=== PATIENT | female | born 1995 | race Caucasian/White ===

== ENCOUNTER 2020-04-25 09:02 | Outpatient (CLI) | payer OTHER ==
[2020-04-25 09:16] VITALS: BP 106/65; PULSE 88; RESP 16; TEMP 98.5
--- NOTE | 2020-05-04 19:15 | P.MSEPDOC ---
Presenting Problems - Arrival Data Date of Arrival on Unit: 04/25/20 Time of Arrival on Unit: 09:13 Mode of Transport: Ambulatory - Complaint OB-Reason for Admission/Chief Complaint: Rule Out SROM Comment: clear 6 am Medical History - Information : 1 Para: 0 Term: 0 : 0 Abortions: Spontaneous or Elective: 0 Number of Living Children: 0 - Gestational Age Gestational Age by GUERRERO (wks/days): 34 Weeks and 3 Days Review of Systems - Review of Systems Constitutional: No problems Breast: No problems ENT: No problems Cardiovascular: No problems Respiratory: No problems Gastrointestinal: No problems Genitourinary: No problems Musculoskeletal: No problems Neurological: No problems Skin: No problems Vital Signs - Temperature Temperature: 98.5 F Temperature Source: Oral - Pulse Sitting Pulse Rate: 88 Pulse Assessment Method: Automatic Cuff - Respirations Respiratory Rate: 16 Oxygen Delivery Method: Room Air - Blood Pressure Right Arm Blood Pressure: 106/65 Blood Pressure Mean: 78 Blood Pressure Source: Automatic Cuff Medical Screen Scoring (Pre) - Cervical Exam Dilation: Exam Deferred - Uterine Contractions Frequency: N/A Duration: N/A Intensity: N/A - Maternal Vital Signs Maternal Temperature: N/A Maternal Blood Pressure: N/A Signs of Preeclampsia: N/A Maternal Respirations: N/A - Maternal Trauma Maternal Trauma: N/A - Assessment - Baby A Baseline FHR: 140 Heart Rate - NICHD Category: Category I (Normal) = 0 NST: Reactive Position: N/A Station: N/A - Total Score - Baby A Total Score - Baby A: 0 - Total Score - Baby B Total Score - Baby B: 0 - Total Score - Baby C Total Score - Baby C: 0 - Level of Risk - Baby A Level of Risk - Baby A: Low (0-5) - Level of Risk - Baby B Level of Risk - Baby B: Low (0-5) - Level of Risk - Baby C Level of Risk - Baby C: Low (0-5) Physician Notification (Pre) - Physician Notified Physician Notified Date: 04/25/20 Physician Notified Time: 09:15 New Order Received: Yes Medical Screen Scoring (Post) - Cervical Exam Dilation: Exam Deferred Effacement: Exam Deferred Membranes: Intact - Uterine Contractions Frequency: N/A Duration: N/A Intensity: N/A - Maternal Vital Signs Maternal Temperature: N/A Maternal Blood Pressure: N/A Signs of Preeclampsia: N/A Maternal Respirations: N/A - Pain Assessment Pain Scale Used: Numeric (1 - 10) Pain Intensity: 0 Pain Management Goal: 0 - Maternal Trauma Maternal Trauma: N/A - Assessment - Baby A Heart Rate: 130 Heart Rate - NICHD Category: Category I (Normal) = 0 NST: Reactive Position: N/A - Total Score Total Score - Baby A: 0 Total Score - Baby B: 0 Total Score - Baby C: 0 - Post Treatment Level of Risk Post Treatment Level of Risk - Baby A: Low (0-5) Post Treatment Level of Risk - Baby B: Low (0-5) Post Treatment Level of Risk - Baby C: Low (0-5) Disposition - Disposition OB Disposition: Discharge to home, Written follow up instructions reviewed Discharge Date: 04/25/20 Discharge Time: 09:56 I agree with the RN Medical Screening Exam: Yes Risk & Benefit of care provided described in d/c instruction: Yes Diagnosis: RELATED CONDITIONS, UNSPECIFIED, THIRD TRIMESTER
== END 2020-04-25 09:56 | disposition home or self-care (01) ==
LOC: FBPOP 09:02
PROVIDERS: ATTEND Obstetrics & Gynecology
DX: O26.93 Pregnancy related conditions, unspecified, third trimester (principal); Z3A.34 34 weeks gestation of pregnancy
CPT/HCPCS: 59025; 84112; G0463; 99213

== ENCOUNTER 2020-05-31 06:15 | Inpatient (IN) | payer OTHER ==
[2020-05-31] MEDS ORDERED: CARBOPROST TROMETHAMINE 250 MCG/ML 1 ML AMP IM PRN (06:46)
[2020-05-31] MEDS ORDERED: METHYLERGONOVINE 0.2 MG/ML 1 ML AMP IM PRN (06:46)
[2020-05-31] MEDS ORDERED: TERBUTALINE 1 MG/ML VIAL SQ PRN (06:46)
[2020-05-31] MEDS ORDERED: LIDOCAINE 0.5% (PF) 5 MG/ML (50 ML SDV) SQ PRN (06:46)
[2020-05-31] MEDS ORDERED: OXYTOCIN 10 UNIT/ML 1 ML VIAL IM PRN (06:46)
[2020-05-31] MEDS ORDERED: LACTATED RINGERS 1,000 ML IV SCH (07:00)
[2020-05-31] MEDS ORDERED: OXYTOCIN 30 UNITS/500 ML NS 30 UNIT in SALINE 1 500ML.BAG IV SCH (07:00)
[2020-05-31 08:23] LABS: Basophils # (A) 0.1 k/uL (0-0.2); Basophils % (A) 1 %; Eosinophils # (A) 0.1 k/uL (0-0.7); Eosinophils % (A) 1 %; HCT 36.8 % (34.0-46.0); HGB 12.1 gm/dL (11.4-16.0); Lymphocytes # (A) 1.4 k/uL (1.0-4.8); Lymphocytes % (A) 13 %; MCH 29.6 pg (25.0-35.0); MCHC 32.9 g/dL (31.0-37.0); MCV 89.9 fL (80.0-100.0); Mean Platelet Volume 8.1; Monocytes # (A) 0.4 k/uL (0-1.0); Monocytes % (A) 4 %; Neutrophils % (A) 81 %; Platelet Count 181 k/uL (150-450); RDW 14.1 % (11.5-15.5); WBC 11.1 k/uL (3.8-10.6)
[2020-05-31] MEDS ORDERED: BUTORPHANOL 1 MG/ML 1 ML VIAL IV PRN (08:27)
--- NOTE | 2020-05-31 08:33 | P.HPOB ---
History of Present Illness H&P Date: 05/31/20 Chief Complaint: 39-4/7 weeks, elective induction Is a 25-year-old 1 para 0 admitted at 39-4/7 weeks as established by last menstrual period and confirmed by 19 week ultrasound. She is admitted for elective induction of labor with all signs reassuring. Her has been essentially uncomplicated though she is known to be rubella nonimmune and declines vaccinations as a general rule. Group B strep status is negative. Obstetrical history: 1 para 0 with current statistics listed in history of present illness. EDC of 06/03/2020 was established by last menstrual period and confirmed by 19 week ultrasound. Laboratory workup demonstrates a blood type of O+ with a negative antibody screen. Rubella status is nonimmune. Remainder of the laboratory workup was within normal limits. One hour Glucola was elevated but was followed by a normal three-hour glucose tolerance test. Group B strep status is negative. Gynecologic history: Unremarkable with no history of any infections to include STDs. Review of Systems Review of systems is confined to history of present illness. Past Medical History Past Medical History: No Reported History History of Any Multi-Drug Resistant Organisms: None Reported Additional Past Surgical History / Comment(s): Nunda tooth extraction Past Anesthesia/Blood Transfusion Reactions: No Reported Reaction Past Psychological History: Anxiety, Depression Smoking Status: Never smoker Past Alcohol Use History: None Reported Past Drug Use History: None Reported - Past Family History Mother Additional Family Medical History / Comment(s): hemmorage Medications and Allergies Home Medications Medication Instructions Recorded Confirmed Type Pnv No.95/Ferrous Fum/Folic AC 1 tablet PO DAILY 05/31/20 05/31/20 History [ Multivitamin Tablet] Sertraline [Zoloft] 12.5 mg PO DAILY 05/31/20 05/31/20 History Allergies Allergy/AdvReac Type Severity Reaction Status Date / Time latex Allergy Rash/Hives Verified 05/31/20 06:44 Penicillins Allergy Rash/Hives Verified 05/31/20 06:44 Exam Vital Signs Temp Pulse Resp BP 05/31/20 06:55 97.6 F 94 16 129/86 Intake and Output 05/30/20 05/31/20 05/31/20 22:59 06:59 14:59 Other: Weight 69.4 kg In general, this is a well-developed, well-nourished white female in no acute distress. Her heart has a regular rhythm and rate without murmur. Her lungs are clear to auscultation bilaterally in all neumann. Her abdomen is gravid, nondistended, has normal active bowel sounds, is soft, nontender, and without any palpable masses aside from uterine fundus. Her extremities are without any cyanosis, clubbing, or edema and are nontender to palpation. Digital cervical examination demonstrates her cervix to be 1-1/2-2 cm dilated, 50% effaced, the vertex in presentation at -2 station. Artificial rupture of membranes is carried out demonstrating lightly meconium-stained fluid. Results Result Diagrams: 05/31/20 07:20 Abnormal Lab Results - Last 24 Hours (Table) 05/31/20 Range/Units 07:20 WBC 11.1 H (3.8-10.6) k/uL Neutrophils # 9.0 H (1.3-7.7) k/uL Assessment and Plan (1) Term Current Visit: Yes Status: Acute Code(s): Z34.90 - ENCNTR FOR SUPRVSN OF NORMAL , UNSP, UNSP TRIMESTER SNOMED Code(s): 39593579 Plan: The patient has been admitted for elective induction of labor. I have explained to her that elective inductions do have a slightly increased risk for potential delivery. She has understood this and agreed to proceed. As result, Pitocin augmentation has been started and artificial rupture of membranes carried out. She will have close maternal and surveillance and expectant management will be practiced. She is a good candidate for either IV or epidural analgesia, whichever she may choose.
[2020-05-31] MEDS ORDERED: ROPIVACAINE 100 MG, fentaNYL (PF) 200 MCG in SODIUM CHLORIDE 0.9% 76 ML EPIDURAL ONE (14:05)
[2020-05-31] MEDS ORDERED: BENZOCAINE/MENTHOL SPRAY 1 GM/SPRAY AEROSOL TOPICAL PRN (19:02)
[2020-05-31] MEDS ORDERED: ACETAMINOPHEN TAB 325 MG TAB PO PRN (19:02)
[2020-05-31] MEDS ORDERED: LANOLIN CREAM 5 GM TUBE TOPICAL PRN (19:02)
[2020-05-31] MEDS ORDERED: HYDROcodone/APAP 5-325MG 1 EACH TAB PO PRN (19:02)
[2020-05-31] MEDS ORDERED: HYDROCORTISONE 2.5% RECTAL CREAM 30 GM TUBE RECTAL PRN (19:02)
[2020-05-31] MEDS ORDERED: diphenhydrAMINE 50 MG/ML 1 ML VIAL IVP PRN ×2 (19:02)
[2020-05-31] MEDS ORDERED: diphenhydrAMINE 25 MG CAP PO PRN (19:02)
[2020-05-31] MEDS ORDERED: diphenhydrAMINE 50 MG CAP PO PRN (19:02)
[2020-05-31] MEDS ORDERED: HYDROcodone/APAP 7.5-325MG 1 EACH TAB PO PRN (19:02)
[2020-05-31] MEDS ORDERED: ZOLPIDEM 5 MG TAB PO PRN (19:02)
[2020-05-31] MEDS ORDERED: SIMETHICONE 80 MG CHEWABLE PO PRN (19:02)
--- NOTE | 2020-05-31 19:06 | P.PROBDLV ---
Vaginal Delivery Note - . Vaginal Delivery Note: The patient is a 25-year-old 1 para 0 admitted at 39-4/7 weeks by good dating parameters. She is admitted for elective induction of labor with all signs reassuring. Her has been uncomplicated and group B strep status is negative. She is rubella nonimmune but is declining any vaccinations for either herself or her . Group B strep status is negative. On labor and delivery, she had Pitocin augmentation started and underwent artificial rupture of membranes demonstrating very lightly meconium stained fluid. She made average progress through the latent phase and had an epidural catheter placed just before the onset of the active phase of labor with good relief. She then made fairly consistent and steady progress through the active phase of labor and ultimately progressed to complete and 0 to +1 station. She pushed over the course of approximately 30 minutes to a normal spontaneous vaginal delivery of a viable 7 lbs. 3 oz. baby boy with Apgars of 9 at 1 minute and 9 at 5 minutes delivered in the left occiput anterior position. The placenta was delivered spontaneously, intact, and grossly normal with a grossly normal three-vessel cord inserted approximate 4-5 cm from the margin of the placental disc. She did have a second-degree left labial laceration from approximately 5:00 inside the labia passing up and through the labia minora just lateral to the clitoral ling. This was repaired in standard fashion with 3-0 chromic catgut without difficulty. She had a moderate amount of bleeding which was thought to be secondary to atony as she had been on Pitocin all day. A dose of Methergine was given which resolved the problem. Nevertheless, estimated blood loss was approximately 500 mL. All sponge, instrument, and needle counts were correct. There were no complications. Both mother and are resting comfortably in recovery.
[2020-05-31] MEDS ORDERED: OXYTOCIN 20 UNITS/1000 ML NS 1,000 ML IV SCH (19:15)
[2020-05-31] MEDS: IBUPROFEN 600 MG TAB PO PRN (19:50)
[2020-05-31] MEDS: SENNOSIDES-DOCUSATE SODIUM 1 EACH TAB PO SCH (21:58)
[2020-06-01 04:27] VITALS: RESP 18
[2020-06-01] MEDS: IBUPROFEN 600 MG TAB PO PRN ×2 (05:32→11:22)
[2020-06-01 07:15] LABS: Basophils % (A) 0 %; Eosinophils # (A) 0.2 k/uL (0-0.7); Eosinophils % (A) 1 %; HCT 29.2 % (34.0-46.0); Lymphocytes # (A) 1.6 k/uL (1.0-4.8); Lymphocytes % (A) 13 %; MCH 29.6 pg (25.0-35.0); MCHC 32.3 g/dL (31.0-37.0); MCV 91.6 fL (80.0-100.0); Mean Platelet Volume 8.1; Monocytes # (A) 0.6 k/uL (0-1.0); Monocytes % (A) 4 %; Neutrophils # (A) 10.2 k/uL (1.3-7.7); Neutrophils % (A) 81 %; Platelet Count 150 k/uL (150-450); RBC 3.19 m/uL (3.80-5.40); RDW 14.6 % (11.5-15.5); WBC 12.6 k/uL (3.8-10.6)
[2020-06-01 07:18] LABS: HGB 9.4 gm/dL (11.4-16.0)
[2020-06-01] MEDS: SENNOSIDES-DOCUSATE SODIUM 1 EACH TAB PO SCH (08:49)
--- NOTE | 2020-06-01 12:43 | P.DS ---
Providers Date of admission: 05/31/20 06:38 Expected date of discharge: 06/01/20 Attending physician: Ian Dias Primary care physician: Stated None - Discharge Diagnosis(es) (1) Term Current Visit: Yes Status: Acute (2) Normal spontaneous vaginal delivery Current Visit: Yes Status: Acute Hospital Course: The patient is a 25-year-old 1 para 0 admitted at 39-4/7 weeks by good dating parameters. She is admitted for elective induction with all signs reassuring. Her pregnancies been uncomplicated and group B strep status is negative. On labor and delivery, she had Pitocin started followed by artificial rupture of membranes for lightly meconium-stained fluid. As she progressed from the latent phase the active phase, she had an epidural catheter placed for analgesia. She then progressed consistently throughout the afternoon to complete and pushed to a normal spontaneous vaginal delivery of a viable 7 lbs. 3 oz. baby boy with Apgars of 9 at 1 minute and 9 at 5 minutes. Her course was unremarkable with vital signs remaining stable and her temperature was afebrile throughout. She was deemed stable for discharge on day #1 and was discharged home to follow-up in the office in 6 weeks' time routinely. Discharge instructions included calling for any significantly increased bleeding or foul-smelling lochia, significantly increased fever or abdominal pain, perineal complaints, breast complaints, or anything else that concerned her. She was additionally instructed to have nothing in the vagina for at least 6 weeks time to include intercourse. She understood her instructions and agrees to follow up as noted above. Discharge medications included continued vitamins as she has opted to breast-feed as well as [id number] analgesic pain medications as needed. As she did have some moderate bleeding and her hemoglobin dropped to approximately 9.3, she was instructed to take iron sulfate daily for approximately 1 month. Maternal blood type is O+ and rubella status is nonimmune but the patient refu ses immunizations. Procedures: #1. Pitocin induction #2. Artificial rupture of membranes #3. Epidural analgesia #4. Normal spontaneous vaginal delivery #5. Repair of left labial laceration Patient Condition at Discharge: Stable Plan - Discharge Summary New Discharge Prescriptions: No Action Sertraline [Zoloft] 12.5 mg PO DAILY Pnv No.95/Ferrous Fum/Folic AC [ Multivitamin Tablet] 1 tablet PO DAILY Discharge Medication List Pnv No.95/Ferrous Fum/Folic AC [ Multivitamin Tablet] 1 tablet PO DAILY 05/31/20 [History] Sertraline [Zoloft] 12.5 mg PO DAILY 05/31/20 [History] Follow up Appointment(s)/Referral(s): Ian Dias MD [STAFF PHYSICIAN] - 6 Weeks Discharge Disposition: HOME SELF-CARE
[2020-06-01 18:08] VITALS: BP 101/67; PULSE 104; TEMP 98.5
== END 2020-06-01 20:00 | disposition home or self-care (01) | DRG 806 ==
LOC: 4FBP 06:38
PROVIDERS: ADMIT Obstetrics & Gynecology; ATTEND Obstetrics & Gynecology
PROC: 0HQ9XZZ Repair Perineum Skin, External Approach (ICD-10-PCS; principal; 2020-05-31)
PROC: 10E0XZZ Delivery of Products of Conception, External Approach (ICD-10-PCS; principal; 2020-05-31)
PROC: 00HU33Z Insertion of Infusion Device into Spinal Canal, Percutaneous Approach (ICD-10-PCS; principal; 2020-05-31)
PROC: 3E033VJ Introduction of Other Hormone into Peripheral Vein, Percutaneous Approach (ICD-10-PCS; principal; 2020-05-31)
PROC: 3E0R3NZ Introduction of Analgesics, Hypnotics, Sedatives into Spinal Canal, Percutaneous Approach (ICD-10-PCS; principal; 2020-05-31)
PROC: 10907ZC Drainage of Amniotic Fluid, Therapeutic from Products of Conception, Via Natural or Artificial Opening (ICD-10-PCS; principal; 2020-05-31)
DX: O70.0 First degree perineal laceration during delivery (principal); O72.1 Other immediate postpartum hemorrhage; Z37.0 Single live birth; O99.344 Other mental disorders complicating childbirth; F32.9 Major depressive disorder, single episode, unspecified; O77.0 Labor and delivery complicated by meconium in amniotic fluid; F41.9 Anxiety disorder, unspecified; Z3A.39 39 weeks gestation of pregnancy; Z79.899 Other long term (current) drug therapy; Z88.0 Allergy status to penicillin; Z91.040 Latex allergy status
CPT/HCPCS: 85025; 86850; 86900; 86901